=== PATIENT | female | born 1975 | race Caucasian/White ===

== ENCOUNTER 2017-01-16 09:52 | Day surgery (SDC) | payer OTHER ==
[2017-01-11 11:31] VITALS: BMI 23.8
[2017-01-16] MEDS ORDERED: LIDOCAINE HCL/PF 2% SDV 5ML VIAL ONE (11:09)
[2017-01-16] MEDS ORDERED: ROCURONIUM BROMIDE 50 MG/5 ML VIAL ONE (11:09)
[2017-01-16] MEDS ORDERED: PROPOFOL 20 ML ONE ×3 (11:09→11:26)
[2017-01-16] MEDS ORDERED: MIDAZOLAM HCL 2 MG/2 ML SINGLE DOSE VIAL ONE (11:26)
[2017-01-16] MEDS ORDERED: DEXAMETHASONE SOD PHOSPHATE 4 MG/1 ML VIAL ONE (11:26)
[2017-01-16] MEDS ORDERED: ONDANSETRON 4 MG/2 ML VIAL ONE (11:26)
[2017-01-16] MEDS ORDERED: ceFAZolin SODIUM 1 GM VIAL ONE (11:26)
[2017-01-16] MEDS ORDERED: LIDOCAINE HCL 1%, 10 MG/ML (20ML VIAL) ONE (11:37)
[2017-01-16] MEDS ORDERED: oxyCODONE HCL 5 MG TABLET PO PRN (13:42)
[2017-01-16] MEDS ORDERED: PROMETHAZINE HCL 25 MG/1 ML VIAL IVPUSH PRN (13:42)
[2017-01-16] MEDS ORDERED: ONDANSETRON 4 MG/2 ML VIAL IVPUSH PRN (13:42)
[2017-01-16] MEDS ORDERED: LACTATED RINGERS SOLUTION 1,000 ML IV SCH (13:45)
[2017-01-16 15:02] VITALS: TEMP 98.2
[2017-01-16] MEDS ORDERED: oxyCODONE HCL 5 MG TABLET ONE (16:33)
[2017-01-16 17:42] VITALS: BP 117/70; PULSE 78
--- NOTE | 2017-01-17 20:02 | OP ---
DATE OF OPERATION: 01/16/2017 SURGEON: Huan Elliott M.D. ENGINE INSTALLER SURGEON: Lolly Liang PREOPERATIVE DIAGNOSIS: 1. Bilateral acquired chest wall deformity status post bilateral mastectomy. 2. Asymmetry of recent constructed chest wall. 3. Mechanical complication and malposition of breast implant. POSTOPERATIVE DIAGNOSIS: 1. Bilateral acquired chest wall deformity status post bilateral mastectomy. 2. Asymmetry of recent constructed chest wall. 3. Mechanical complication and malposition of breast implant. OPERATIVE PROCEDURE: 1. Right breast reconstruction utilizing other technique. 2. Left breast reconstruction utilizing other technique. 3. Capsulorrhaphy right breast for malposition. OPERATIVE INDICATION: The patient is a young woman who underwent bilateral mastectomy for history of breast cancer. The patient now presented with the above indications and required the above procedures. The risks and benefits, surgical versus nonsurgical alternatives, as well as material complications were described to the patient preoperatively on multiple occasions, and she agreed to planned procedure. OPERATIVE PROCEDURE IN DETAIL: Patient was taken to the operating room and after induction of general anesthesia in supine position, both arms were extended and padded. Venodyne boots were placed. The entire chest wall is painted with ChloraPrep solution over its entire extent, and the markings which were made in the standing position preoperatively in the holding area with the patient's knowledge, were re-outlined on the breast and abdomen. At this point, after placement of sterile drapes in usual fashion and timeout, attention was turned to the mastectomy scars. The mastectomy scars were injected with 1% local lidocaine anesthesia with 1:200,000 epinephrine as was the scar in the lower abdomen from previous surgery. At this point, after allowing time for anesthesia and hemostasis, an excision of the mastectomy scar on the right breast is carried out down through the skin to the subcutaneous tissue, and then dissection was carried through the subcutaneous tissue into the deep planes of the breast and down to the underlying capsule. At this point, because of the malposition of the implant, the capsule was opened and retraction of the implant was carried out into the medial pocket. The lateral gutter was then injected with 1% local lidocaine anesthesia, and a capsulorrhaphy was planned and executed. Using number 1 V-Loc suture, a running capsulorrhaphy was sutured along the lateral gutter of the right breast implant, suturing the chest wall to the previously placed Alloderm material. Good vascularity was seen in this material, and malposition was accomplished to be repaired by multiple layers of suture on the lateral gutter back and forth in 3-layered fashion. Once this was carried out, copious irrigation of the wound was performed, and the implant was allowed to retract into its new anatomic position, and then the capsule was closed using 2-0 PDS sutures in interrupted fashion. A running suture was also placed. At this point, the skin and subcutaneous tissue was allowed to remain open, and attention was turned to the left breast. Incision was also made into the mastectomy scar of the left breast, down into the deep subcutaneous layers just above the pectoralis major muscle. Attention was turned to the abdomen. Tissue was then harvested by incising the previously placed scar and carrying incision down into the deep layers of the abdominal wall just above the rectus fascia. Tissue was then harvested for reconstructive purposes, transferred to back table, prepared, cleansed, and readied for usage. Tissue was then transferred to the right breast in the superior, medial, central, and lateral portions, and independently also placed into the left breast superior medial central and lateral portions. At this point, both wounds were closed in layers using 3-0 PDS suture on the deep dermis, and 4-0 in a subcuticular fashion all wounds. Dry sterile dressings were placed over all wounds. Patient was dressed into a Surgi-Bra. She was awakened, extubated, and transferred to recovery room in satisfactory condition. She tolerated the procedure well. HUAN ELLIOTT M.D. [id number]
== END 2017-01-16 17:20 | disposition home or self-care (01) ==
LOC: FASU 09:52
PROVIDERS: ATTEND Plastic Surgery
PROC: 0HRV07Z Replacement of Bilateral Breast with Autologous Tissue Substitute, Open Approach (ICD-10-PCS; principal; 2017-01-16 12:27)
PROC: 0HWT0JZ Revision of Synthetic Substitute in Right Breast, Open Approach (ICD-10-PCS; 2017-01-16 12:27)
DX: M95.4 Acquired deformity of chest and rib (principal); Z90.13 Acquired absence of bilateral breasts and nipples; N65.1 Disproportion of reconstructed breast; T85.42XA Displacement of breast prosthesis and implant, initial encounter; T85.41XA Breakdown (mechanical) of breast prosthesis and implant, initial encounter; Y83.8 Other surgical procedures as the cause of abnormal reaction of the patient, or of later complication, without mention of misadventure at the time of the procedure; Y92.89 Other specified places as the place of occurrence of the external cause
CPT/HCPCS: 84703; 94760